=== PATIENT | female | born 1935 | race Caucasian/White ===

== ENCOUNTER → 2017-07-14 | Outpatient (CLI) | payer MEDICARE, BC ==
[~2017-07-14] MED LIST: AMLO5TAB2 PO; ATEN25TA PO; LORA2TAB PO; LOSA50TA6 PO; METH5TAB6 PO; SIMV20TA3 PO
== END | disposition home or self-care (01) ==
LOC: CVU 11:41
PROVIDERS: ATTEND Internal Medicine Cardiovascular Disease
DX: M79.605 Pain in left leg (principal); M79.604 Pain in right leg; I10 Essential (primary) hypertension; E78.5 Hyperlipidemia, unspecified; Z87.891 Personal history of nicotine dependence
CPT/HCPCS: 93922

== ENCOUNTER → 2017-07-15 | Outpatient (CLI) | payer MEDICARE, BC ==
[~2017-07-15] MED LIST changes: +REGADENOSON 0.4 MG/5 ML SYRINGE ONE
== END | disposition home or self-care (01) ==
LOC: CFH 11:02
PROVIDERS: ATTEND Internal Medicine Cardiovascular Disease
DX: I70.213 Atherosclerosis of native arteries of extremities with intermittent claudication, bilateral legs (principal)
CPT/HCPCS: 78452; 93017; 93978; A9502; J2785

== ENCOUNTER → 2018-02-24 | Outpatient (CLI) | payer MEDICARE, BC ==
[~2018-02-24] MED LIST changes: +LIDOCAINE 1%, 50ML ONE; +LIDOCAINE-MPF 1%, 5ML ONE; -REGADENOSON 0.4 MG/5 ML SYRINGE ONE
== END | disposition home or self-care (01) ==
LOC: RAD 12:34
PROVIDERS: ATTEND Surgery
DX: E04.2 Nontoxic multinodular goiter (principal)
CPT/HCPCS: 76942; 88173; J3490

== ENCOUNTER → 2018-08-03 | Outpatient (CLI) | payer MEDICARE, BC ==
[~2018-08-03] MED LIST changes: -LIDOCAINE 1%, 50ML ONE; -LIDOCAINE-MPF 1%, 5ML ONE
== END | disposition home or self-care (01) ==
LOC: CVU 12:26
PROVIDERS: ATTEND Internal Medicine Cardiovascular Disease
DX: I08.1 Rheumatic disorders of both mitral and tricuspid valves (principal); I65.23 Occlusion and stenosis of bilateral carotid arteries; I11.9 Hypertensive heart disease without heart failure; Z72.0 Tobacco use
CPT/HCPCS: 93306; 93880

== ENCOUNTER 2018-09-14 18:44 | Emergency (ER) | payer MEDICARE, BC ==
[~2018-09-14] VITALS: Ht 149.9 cm; Wt 48.1 kg
[~2018-09-14 18:44] MED LIST changes: -AMLO5TAB2 PO; +AMLO5TAB7 PO; -LOSA50TA6 PO; +LOSA50TA7 PO
[2018-09-14 19:36] LABS: BASOPHILS # (AUTO) 0.04 x10^3/uL (0-0.1); BASOPHILS % (AUTO) 1 % (0-1); EOSINOPHILS # (AUTO) 0.12 x10^3/uL (0-0.4); EOSINOPHILS % (AUTO) 2 % (1-7); LYMPHOCYTES # (AUTO) 1.62 x10^3/uL (1-3.4); LYMPHOCYTES % (AUTO) 21 % (22-44); MD NO; MEAN CORPUSCULAR HEMOGLOBIN 31.1 pg (27.0-34.8); MEAN CORPUSCULAR HGB CONC 34.1 g/dL (32.4-35.8); MEAN CORPUSCULAR VOLUME 91.1 fL (80-100); MEAN PLATELET VOLUME 7.6 fL (7.4-10.4); MONOCYTES # (AUTO) 0.46 x10^3/uL (0.2-0.8); MONOCYTES % (AUTO) 6 % (2-9); NEUTROPHILS # (AUTO) 5.47 x10^3/uL (1.8-6.8); NEUTROPHILS % (AUTO) 71 % (42-75); PLATELET COUNT 276 x10^3/uL (130-400); RED CELL DISTRIBUTION WIDTH 13.9 % (9.6-15.2)
[2018-09-14 19:37] LABS: MICROSCOPIC NOT IND
[2018-09-14 19:43] LABS: ALANINE AMINOTRANSFERASE 31 U/L (12-78); ALBUMIN 4.5 g/dL (3.4-5.0); ANION GAP 7 mmol/L (5-15); CALCIUM 9.9 mg/dL (8.5-10.1); CHLORIDE 102 mmol/L (98-107)
[2018-09-14 19:46] LABS: ALKALINE PHOSPHATASE 65 U/L (45-117); BILIRUBIN,TOTAL 0.5 mg/dL (0.2-1.0); CREATININE 1.34 mg/dL (0.55-1.02); TOTAL PROTEIN 7.9 g/dL (6.4-8.2)
[2018-09-14 19:48] LABS: CULTURE INDICATED? NO
[2018-09-14 20:23] VITALS: BP 150/64
== END 2018-09-14 21:09 | disposition home or self-care (01) ==
LOC: ED 20:45
DX: R10.32 Left lower quadrant pain (principal); E78.5 Hyperlipidemia, unspecified; I48.91 Unspecified atrial fibrillation; I10 Essential (primary) hypertension; Z90.49 Acquired absence of other specified parts of digestive tract; Z90.710 Acquired absence of both cervix and uterus; Z90.721 Acquired absence of ovaries, unilateral
CPT/HCPCS: 36415; 74176; 80053; 81003; 83690; 85025; 99285

== ENCOUNTER 2020-08-19 02:00 | Emergency (ER) | payer MEDICARE ==
[~2020-08-19] VITALS: Ht 152.4 cm; Wt 52.0 kg
[~2020-08-19 02:00] MED LIST changes: +AMLO-150 PO; -AMLO5TAB7 PO; +LOSA50TA14 PO; -LOSA50TA7 PO; +SIMV20TA19 PO; -SIMV20TA3 PO
[2020-08-19] MEDS ORDERED: PROMETHAZINE 25 MG/ML, 1ML ONE (02:17)
[2020-08-19] MEDS ORDERED: MORPHINE SULFATE 4 MG/ML, 1ML ONE ×2 (02:17→04:32)
[2020-08-19] MEDS ORDERED: ONDANSETRON 2MG/ML, 2ML ONE (02:17)
[2020-08-19] MEDS ORDERED: SODIUM CHLORIDE FLUSH 10ML SYR IVF ONE (02:30)
[2020-08-19] MEDS ORDERED: ONDANSETRON 2MG/ML, 2ML IVPush ONE (02:30)
[2020-08-19] MEDS ORDERED: PROMETHAZINE 25 MG/ML, 1ML IM ONE (02:30)
[2020-08-19] MEDS ORDERED: SODIUM CHLORIDE 0.9% 1,000ML IVBOLUS ONE (02:30)
[2020-08-19 02:47] LABS: BASOPHILS # (AUTO) 0.02 x10^3/uL (0-0.1); BASOPHILS % (AUTO) 0 % (0-1); EOSINOPHILS # (AUTO) 0.01 x10^3/uL (0-0.4); EOSINOPHILS % (AUTO) 0 % (1-7); LYMPHOCYTES # (AUTO) 0.72 x10^3/uL (1-3.4); LYMPHOCYTES % (AUTO) 8 % (22-44); MD NO; MEAN CORPUSCULAR HEMOGLOBIN 29.6 pg (27.0-34.8); MEAN CORPUSCULAR HGB CONC 32.9 g/dL (32.4-35.8); MEAN CORPUSCULAR VOLUME 90.1 fL (80-100); MEAN PLATELET VOLUME 7.1 fL (7.4-10.4); MONOCYTES # (AUTO) 0.21 x10^3/uL (0.2-0.8); MONOCYTES % (AUTO) 2 % (2-9); NEUTROPHILS # (AUTO) 7.82 x10^3/uL (1.8-6.8); NEUTROPHILS % (AUTO) 89 % (42-75); PLATELET COUNT 294 x10^3/uL (130-400); RED BLOOD COUNT 5.12 x10^6/uL (3.82-5.3); RED CELL DISTRIBUTION WIDTH 13.8 % (9.6-15.2)
[2020-08-19 02:55] LABS: ALANINE AMINOTRANSFERASE 29 U/L (12-78); ALBUMIN 4.6 g/dL (3.4-5.0); ANION GAP 10 mmol/L (5-15); CALCIUM 10.1 mg/dL (8.5-10.1); CHLORIDE 103 mmol/L (98-107); CREATININE 0.89 mg/dL (0.55-1.02)
--- NOTE | 2020-08-19 02:57 | NUR ---
PT BIB [facility] FOR ABDOMINAL PAIN AND N/V. PT REPORTS IT STARTED ABOUT 2000 TONIGHT AFTER TAKING MEDICATIONS. PT REPORTS FEELING NAUSEATED AND STICKING HER FINGER DOWN HER THROAT, REPORTS ABDOMINAL PAIN IN ALL QUADRANTS. PT DENIES BEING ABLE TO KEEP ANYTHING DOWN AT THIS TIME. GROSS NEURO INTACT, NAD. PT PLACED ON SPO2/BP/ECG MONITORING. WCTM.
[2020-08-19 03:00] LABS: ALKALINE PHOSPHATASE 70 U/L (45-117); BILIRUBIN,TOTAL 0.8 mg/dL (0.2-1.0); TROPONIN I < 0.015 ng/mL (0.000-0.045)
[2020-08-19] MEDS: MORPHINE SULFATE 4 MG/ML, 1ML IVPush PRN ×2 (03:05→04:34)
--- NOTE | 2020-08-19 03:39 | NUR ---
Break RN: patient to CT scan.
--- NOTE | 2020-08-19 04:13 | NUR ---
CT DELAY- IV FAILED, NEED NEW IV FOR CT.
--- NOTE | 2020-08-19 04:17 | NUR ---
PT RESTING ON GURNEY, ASSISTED ONTO BEDPAN TO URINATE, NAD, PT TOLERATED WELL, APPEARS COMFORTABLE, STILL C/O PAIN 09/08, RN INFORMED PT WE NEED A NEW IV TO GIVE MEDS. WCTM. WAITING FOR NEW IV ACCESS AND CT
[2020-08-19] MEDS ORDERED: LEVO88TA4 PO (04:27)
[2020-08-19] MEDS ORDERED: QUET25TA7 PO (04:31)
[2020-08-19] MEDS ORDERED: OMNIPAQUE 350 MG/ML, 100ML BOTTLE ONE (04:51)
[2020-08-19 05:19] VITALS: BP 151/42
--- NOTE | 2020-08-19 05:48 | NUR ---
PT ASSISTED ONTO BED NARVAEZ, STATES PAIN IS GONE, NAD, RESTING COMFORTABLY, WAITING FOR CT RESULTS. WCTM.
--- NOTE | 2020-08-19 06:37 | NUR ---
Patient given discharge instructions and they have confirmed that they understand the instructions. Patient ambulatory with steady gait. NAD, SON DRIVING PT HOME, DENIES ANY ADDITIONAL NEEDS. NO BELONGINGS LEFT IN ROOM AT MD.
== END 2020-08-19 06:38 ==
LOC: ED 06:01
DX: R10.84 Generalized abdominal pain (principal); R11.2 Nausea with vomiting, unspecified; R93.5 Abnormal findings on diagnostic imaging of other abdominal regions, including retroperitoneum; I10 Essential (primary) hypertension; I48.91 Unspecified atrial fibrillation; E78.5 Hyperlipidemia, unspecified; M19.90 Unspecified osteoarthritis, unspecified site; Z90.49 Acquired absence of other specified parts of digestive tract; Z90.710 Acquired absence of both cervix and uterus; Z90.721 Acquired absence of ovaries, unilateral
CPT/HCPCS: 36415; 74177; 80053; 80307; 83605; 83690; 84484; 85025; 93005; 96361; 96372; 96374; 96375; 96376; 99285; J2270; J2405; J2550; J7030; Q9967

== ENCOUNTER 2020-08-22 02:35 | Inpatient (IN) | payer MEDICARE ==
[~2020-08-22] VITALS: Ht 149.9 cm; Wt 54.5 kg
[~2020-08-22 02:35] MED LIST changes: +LEVO88TA4 PO; +QUET25TA7 PO
--- NOTE | 2020-08-22 02:50 | NUR ---
Patient BIB ambulance c/o low quad abd pain since last night. Patient started vomiting approx 1hr prior to EMS arrival. Patient also states she hasn't had a BM x3 days. Patient came to ER for the same on Thursday morning but pain is worse today. Per EMS, patient received 4mg Morphine and 4mg Zofran. Patient states it hasn't helped. Patient is in obvious pain. Respirations even and unlabored.
[2020-08-22] MEDS ORDERED: ONDANSETRON 2MG/ML, 2ML ONE (02:59)
[2020-08-22] MEDS ORDERED: MORPHINE SULFATE 4 MG/ML, 1ML ONE (02:59)
[2020-08-22] MEDS ORDERED: ONDANSETRON 2MG/ML, 2ML IVPush ONE (03:00)
[2020-08-22] MEDS ORDERED: MORPHINE SULFATE 4 MG/ML, 1ML IVPush PRN (03:00)
[2020-08-22 03:20] LABS: ALANINE AMINOTRANSFERASE 30 U/L (12-78); ALBUMIN 4.2 g/dL (3.4-5.0); ANION GAP 8 mmol/L (5-15); BASOPHILS % (AUTO) 0 % (0-1); CALCIUM 9.7 mg/dL (8.5-10.1); CHLORIDE 108 mmol/L (98-107); EOSINOPHILS # (AUTO) 0.05 x10^3/uL (0-0.4); EOSINOPHILS % (AUTO) 0 % (1-7); LYMPHOCYTES # (AUTO) 0.93 x10^3/uL (1-3.4); LYMPHOCYTES % (AUTO) 6 % (22-44); MD NO; MEAN PLATELET VOLUME 7.1 fL (7.4-10.4); MONOCYTES # (AUTO) 0.51 x10^3/uL (0.2-0.8); MONOCYTES % (AUTO) 3 % (2-9); NEUTROPHILS # (AUTO) 14.13 x10^3/uL (1.8-6.8); NEUTROPHILS % (AUTO) 90 % (42-75); PLATELET COUNT 281 x10^3/uL (130-400); RED BLOOD COUNT 4.81 x10^6/uL (3.82-5.3); RED CELL DISTRIBUTION WIDTH 13.6 % (9.6-15.2)
[2020-08-22] MEDS ORDERED: HYDROmorphone 1 MG/ML, 1ML INJ ONE (03:20)
[2020-08-22 03:25] LABS: ALKALINE PHOSPHATASE 69 U/L (45-117); BILIRUBIN,TOTAL 0.6 mg/dL (0.2-1.0); CREATININE 1.06 mg/dL (0.55-1.02); TOTAL PROTEIN 7.3 g/dL (6.4-8.2); TROPONIN I < 0.015 ng/mL (0.000-0.045)
[2020-08-22] MEDS ORDERED: HYDROmorphone 1 MG/ML, 1ML INJ IVPush PRN (03:30)
--- NOTE | 2020-08-22 03:47 | NUR ---
Patient to CT at this time.
[2020-08-22] MEDS ORDERED: OMNIPAQUE 350 MG/ML, 100ML BOTTLE ONE (03:58)
[2020-08-22] MEDS ORDERED: CIPROFLOXACIN/PMX 400MG/200ML 200 ML IV ONE (05:00)
[2020-08-22] MEDS ORDERED: METRONIDAZOLE PMX 500MG/100ML 100 ML IV ONE (05:00)
--- NOTE | 2020-08-22 05:17 | NUR ---
Patient to receive antibiotics. Awaiting blood cultures to be drawn.
[2020-08-22] MEDS ORDERED: ONDANSETRON 2MG/ML, 2ML IVPush PRN (05:30)
[2020-08-22] MEDS ORDERED: OXYcodone IR 5MG TABLET PO PRN (05:30)
[2020-08-22] MEDS ORDERED: hydrALAzine 20 MG/ML, 1ML IVPush PRN (05:30)
[2020-08-22] MEDS ORDERED: PROMETHAZINE 25 MG/ML, 1ML IM PRN (05:30)
[2020-08-22] MEDS ORDERED: ACETAMINOPHEN 325 MG TABLET PO PRN (05:30)
[2020-08-22] MEDS ORDERED: ONDANSETRON ODT 4 MG PO PRN (05:30)
[2020-08-22] MEDS ORDERED: CIPROFLOXACIN/PMX 400MG/200ML 200 ML ONE (05:32)
[2020-08-22] MEDS ORDERED: ATOR10TA9 PO (05:44)
[2020-08-22 05:51] LABS: FREE T4 (FREE THYROXINE) 1.28 ng/dL (0.76-1.46)
--- NOTE | 2020-08-22 06:01 | NUR ---
Report given to JEWELL Lopez. Patient transferred to room [id number].
[2020-08-22 07:15] VITALS: BP 147/73
[2020-08-22] MEDS: CEFTRIAXONE PMX 2GM/50ML 50 ML IV SCH (07:50)
[2020-08-22] MEDS: morphine SULFATE 10 MG/ML, 1ML IVPush PRN ×3 (07:50→16:51)
[2020-08-22] MEDS: D5%-0.45% NACL 1,000 ML IV SCH ×2 (07:51→16:37)
[2020-08-22 08:00] VITALS: BP 152/90
[2020-08-22] MEDS: PANTOPRAZOLE 40 MG IV IVPush SCH (09:04)
[2020-08-22] MEDS: HEPARIN 5,000 UNITS/ML, 1ML SQ SCH ×2 (09:04→16:49)
[2020-08-22] MEDS: METRONIDAZOLE PMX 500MG/100ML 100 ML IV SCH ×2 (09:17→19:05)
[2020-08-22 13:08] VITALS: BP 137/61
[2020-08-22 19:45] VITALS: BP 154/70
[2020-08-22] MEDS: LORazepam 1MG TABLET PO PRN (22:23)
[2020-08-23] MEDS: D5%-0.45% NACL 1,000 ML IV SCH
[2020-08-23] MEDS: HEPARIN 5,000 UNITS/ML, 1ML SQ SCH ×3 (00:07→17:42)
[2020-08-23] MEDS: METRONIDAZOLE PMX 500MG/100ML 100 ML IV SCH ×2 (02:15→17:42)
[2020-08-23 04:41] VITALS: BP 132/64
[2020-08-23] MEDS: CEFTRIAXONE PMX 2GM/50ML 50 ML IV SCH (05:20)
[2020-08-23] MEDS: PANTOPRAZOLE 40 MG IV IVPush SCH (08:32)
[2020-08-23 08:56] VITALS: BP 144/70
[2020-08-23 09:31] LABS: ALANINE AMINOTRANSFERASE 21 U/L (12-78); ALBUMIN 3.1 g/dL (3.4-5.0); ANION GAP 7 mmol/L (5-15); CALCIUM 7.5 mg/dL (8.5-10.1); CHLORIDE 108 mmol/L (98-107); CHOLESTEROL, TOTAL 104 mg/dL (140-239); CREATININE 0.82 mg/dL (0.55-1.02)
[2020-08-23 09:32] LABS: MEAN CORPUSCULAR HEMOGLOBIN 29.7 pg (27.0-34.8); MEAN CORPUSCULAR HGB CONC 32.5 g/dL (32.4-35.8); MEAN PLATELET VOLUME 7.2 fL (7.4-10.4); PLATELET COUNT 253 x10^3/uL (130-400); RED CELL DISTRIBUTION WIDTH 13.9 % (9.6-15.2)
[2020-08-23 09:33] LABS: ALKALINE PHOSPHATASE 57 U/L (45-117); BILIRUBIN,TOTAL 0.4 mg/dL (0.2-1.0); CHOL/HDL RATIO 1.5; HDL CHOL % 65 % (28-40); HDL CHOLESTEROL (DIRECT) 68 mg/dL (40-60); LDL CHOLESTEROL,CALCULATED 19 mg/dL (54-169); LDL/HDL RATIO 0.3 (0.5-3.0); TOTAL PROTEIN 5.9 g/dL (6.4-8.2); TRIGLYCERIDES 87 mg/dL (50-200); VLDL CHOLESTEROL 17 mg/dL (0-25)
[2020-08-23 10:04] LABS: MD YES
[2020-08-23 10:07] LABS: BAND#(MANUAL) 0.22 x10^3/uL; BANDS%(MANUAL) 2 % (0-7); LYMPH#(MANUAL) 1.55 x10^3/uL (1-3.4); LYMPHS% (MANUAL) 14 % (22-44); MONOS#(MANUAL) 0.67 x10^3/uL (0.3-2.7); MONOS% (MANUAL) 6 % (2-9); MYELOCYTES# (MANUAL) 0.11 x10^3/uL (0-0); MYELOCYTES% (MANUAL) 1 % (0-0); SEG#(MANUAL) 8.55 x10^3/uL (1.8-6.8); SEGS% (MANUAL) 77 % (42-75)
[2020-08-23 10:08] LABS: ANISOCYTOSIS 1+
[2020-08-23 10:09] LABS: <PLATELET ESTIMATE> ADEQUATE; <PLT MORPHOLOGY> NORMAL PLT MORPH
[2020-08-23] MEDS ORDERED: BISACODYL 10 MG SUPP PR PRN (12:30)
[2020-08-23] MEDS: LEVOTHYROXINE 88 MCG TABLET PO SCH (12:30)
[2020-08-23] MEDS: POLYETHYLENE GLYCOL 17 GM PACKET PO PRN (12:35)
[2020-08-23] MEDS: LORazepam 1MG TABLET PO PRN ×2 (14:29→23:17)
[2020-08-23] MEDS ORDERED: POTASSIUM CHLORIDE 20 MEQ in SODIUM CHLORIDE 0.9% 250 ML IV ONE (15:00)
[2020-08-23 15:59] VITALS: BP 158/72
[2020-08-23] MEDS ORDERED: metroNIDAZOLE 500 MG TABLET PO SCH (16:00)
[2020-08-23 18:37] VITALS: BP 171/75
[2020-08-23] MEDS: LACTATED RINGERS 1,000 ML IV SCH (20:39)
[2020-08-23 20:52] VITALS: BP 169/74
[2020-08-23] MEDS ORDERED: CIPROFLOXACIN 500 MG TABLET PO SCH (21:00)
[2020-08-24] MEDS: HEPARIN 5,000 UNITS/ML, 1ML SQ SCH ×3 (01:00→16:48)
[2020-08-24 01:16] VITALS: BP 162/75
[2020-08-24] MEDS: METRONIDAZOLE PMX 500MG/100ML 100 ML IV SCH ×3 (02:04→17:51)
[2020-08-24] MEDS: CEFTRIAXONE PMX 2GM/50ML 50 ML IV SCH (05:21)
[2020-08-24] MEDS: LACTATED RINGERS 1,000 ML IV SCH ×2 (05:22→16:47)
[2020-08-24 05:54] LABS: BASOPHILS # (AUTO) 0.02 x10^3/uL (0-0.1); BASOPHILS % (AUTO) 0 % (0-1); EOSINOPHILS # (AUTO) 0.05 x10^3/uL (0-0.4); EOSINOPHILS % (AUTO) 1 % (1-7); LYMPHOCYTES # (AUTO) 1.38 x10^3/uL (1-3.4); LYMPHOCYTES % (AUTO) 17 % (22-44); MD NO; MEAN CORPUSCULAR HEMOGLOBIN 30.4 pg (27.0-34.8); MEAN CORPUSCULAR HGB CONC 33.7 g/dL (32.4-35.8); MEAN PLATELET VOLUME 7.4 fL (7.4-10.4); MONOCYTES # (AUTO) 0.44 x10^3/uL (0.2-0.8); MONOCYTES % (AUTO) 5 % (2-9); NEUTROPHILS # (AUTO) 6.21 x10^3/uL (1.8-6.8); NEUTROPHILS % (AUTO) 77 % (42-75); PLATELET COUNT 228 x10^3/uL (130-400); RED BLOOD COUNT 3.94 x10^6/uL (3.82-5.3); RED CELL DISTRIBUTION WIDTH 13.6 % (9.6-15.2)
[2020-08-24 06:13] LABS: ALBUMIN 2.9 g/dL (3.4-5.0); CALCIUM 7.6 mg/dL (8.5-10.1); CHLORIDE 109 mmol/L (98-107)
[2020-08-24 06:19] LABS: ALANINE AMINOTRANSFERASE 20 U/L (12-78); ALKALINE PHOSPHATASE 52 U/L (45-117); ANION GAP 6 mmol/L (5-15); BILIRUBIN,TOTAL 0.6 mg/dL (0.2-1.0); TOTAL PROTEIN 5.6 g/dL (6.4-8.2)
[2020-08-24 07:18] VITALS: BP 158/76
[2020-08-24] MEDS: LEVOTHYROXINE 88 MCG TABLET PO SCH (08:22)
[2020-08-24] MEDS: PANTOPRAZOLE 40 MG IV IVPush SCH (08:23)
[2020-08-24 12:10] VITALS: BP 153/75
[2020-08-24] MEDS: LORazepam 1MG TABLET PO PRN ×2 (13:09→23:20)
[2020-08-24] MEDS: POLYETHYLENE GLYCOL 17 GM PACKET PO PRN (17:51)
[2020-08-24 18:19] VITALS: BP 153/82
[2020-08-24] MEDS ORDERED: DIPHENHYDRAMINE/ZINC CRM 2%, 30GM TP PRN (22:30)
[2020-08-24 23:32] VITALS: BP 184/91
[2020-08-25] MEDS ORDERED: ENALAPRILAT 1.25 MG/ML, 2ML IV PRN
[2020-08-25] MEDS: HEPARIN 5,000 UNITS/ML, 1ML SQ SCH ×3 (00:02→15:41)
[2020-08-25 01:08] VITALS: BP 135/68
[2020-08-25] MEDS: METRONIDAZOLE PMX 500MG/100ML 100 ML IV SCH ×2 (01:25→09:59)
[2020-08-25] MEDS: LACTATED RINGERS 1,000 ML IV SCH (05:20)
[2020-08-25] MEDS: CEFTRIAXONE PMX 2GM/50ML 50 ML IV SCH (05:20)
[2020-08-25 06:38] VITALS: BP 138/81
[2020-08-25] MEDS: LORazepam 1MG TABLET PO PRN (07:25)
[2020-08-25] MEDS: LEVOTHYROXINE 88 MCG TABLET PO SCH (07:25)
[2020-08-25] MEDS: PANTOPRAZOLE 40 MG IV IVPush SCH (09:58)
[2020-08-25 14:06] VITALS: BP 163/81
[2020-08-25] MEDS ORDERED: METR500T PO (15:57)
[2020-08-25] MEDS ORDERED: CIPR500T87 PO (15:57)
[2020-08-25] MEDS ORDERED: metroNIDAZOLE 500 MG TABLET PO SCH (16:00)
[2020-08-25] MEDS ORDERED: CIPROFLOXACIN 500 MG TABLET PO SCH (21:00)
== END 2020-08-25 17:57 | disposition home health service (06) | DRG 392 ==
LOC: ED 05:09 → EDIP 05:45 → 3N 07:06
PROVIDERS: ADMIT Internal Medicine; ATTEND Family Medicine
DX: K57.92 Diverticulitis of intestine, part unspecified, without perforation or abscess without bleeding (principal); K56.7 Ileus, unspecified; E03.9 Hypothyroidism, unspecified; E78.5 Hyperlipidemia, unspecified; I10 Essential (primary) hypertension; I48.91 Unspecified atrial fibrillation; N28.1 Cyst of kidney, acquired; F41.9 Anxiety disorder, unspecified; K52.9 Noninfective gastroenteritis and colitis, unspecified; Z88.0 Allergy status to penicillin; Z90.710 Acquired absence of both cervix and uterus; Z90.49 Acquired absence of other specified parts of digestive tract; K59.00 Constipation, unspecified
CPT/HCPCS: 36415; 71045; 74018; 74177; 76770; 80053; 80061; 80307; 83036; 83605; 83690; 83735; 84439; 84443; 84484; 85025; 87040; 93005; 96361; 96372; 96374; 96375; 96376; 99285; G0378; J0696; J0744; J1170; J1644; J2405; J2550; J3480; Q9967; C9113; J2270; J7030; J7050; J7120

== ENCOUNTER → 2021-04-12 | Outpatient (CLI) | payer MEDICARE, BC ==
[~2021-04-12] MED LIST changes: +ATOR10TA9 PO; +CIPR500T87 PO; +METR500T PO
== END | disposition home or self-care (01) ==
LOC: CVU 12:22
PROVIDERS: ATTEND Internal Medicine Cardiovascular Disease
DX: I08.0 Rheumatic disorders of both mitral and aortic valves (principal); I65.23 Occlusion and stenosis of bilateral carotid arteries
CPT/HCPCS: 93306; 93356; 93880